=== PATIENT | male | born 1960 | race African-American/Black ===

== ENCOUNTER 2017-10-26 08:45 | Inpatient (IN) ==
[2017-10-28 13:16] VITALS: BP 150/91
== END 2017-10-28 15:02 | disposition home or self-care (01) | DRG 392 ==
LOC: N.ED 08:45 → N.EDINP 13:07 → N.5E 14:42
PROVIDERS: ADMIT Internal Medicine; ATTEND Internal Medicine

== ENCOUNTER 2017-12-22 08:05 | Observation (INO) ==
[2017-12-22] MEDS ORDERED: DIPH/TET/ACEL PERT BOOSTER VACCINE 0.5 ML VIAL IM ONE (08:24)
[2017-12-22 09:20] LABS: Basophils # 0.1 10*3/uL (0.0-0.2); Basophils % 0.7 % (0.0-0.8); Eosinophils # 0.1 10*3/uL (0.0-0.87); Eosinophils % 1.2 % (0.00-10.9); Hematocrit 41.8 VOL% (42.0-52.0); Immature Granulocytes % 0.7 %; Immature Granulocytes Absolute 0.05 #; Lymphocytes # 1.2 10*3/uL (1.4-4.0); Lymphocytes % 17.3 % (21.2-54.2); Mean Corpuscular HGB Conc 33.5 GM/DL (32-36); Mean Corpuscular Hemoglobin 31 PG (27-34); Mean Corpuscular Volume 92.5 FL (87-102); Mean Platelet Volume 11.3 FL (9.6-12.0); Monocytes # 0.7 10*3/uL (0.11-0.8); Monocytes % 10.1 % (1.7-12.7); Neutrophils # 4.8 10*3/uL (1.4-7.4); Platelet Count 259 T/CUMM (130-400); Red Blood Count 4.52 MC/CUMM (3.8-5.5); Red Cell Distribution Width 13.4 % (9.3-17.3); White Blood Count 6.8 T/CUMM (4-12)
[2017-12-22 09:35] LABS: PT Patient Result 10.7 SECS
[2017-12-22 09:53] LABS: Alanine Aminotransferase 18 U/L (16-61); Albumin 3.3 G/DL (3.4-5.0); Alkaline Phosphatase 91 U/L (45-117); Aspartate Amino Transferase 16 U/L (0-37); Blood Urea Nitrogen 8 MG/DL (7-18); Calcium 8.8 MG/DL (8.5-10.1); Glucose 103 MG/DL (74-106); Potassium 3.9 MMOL/L (3.5-5.1); Sodium 143 MMOL/L (136-145); Total Protein 7.3 G/DL (6.4-8.3)
[2017-12-22 10:11] LABS: Apearance,Urine CLEAR (Clear); Bilirubin,Urine Negative (Negative); Blood, Urine Negative (Negative); Glucose,Urine (UA) Negative (Negative); Ketones,Urine Negative (Negative); Mucus,Urine Occasional /LPF (Occasional); Nitrite,Urine Negative (Negative); Protein,Urine Negative; Urine Color Yellow (Yellow); Urine Urobilinogen < 2.0 EU/DL (0.2-1.0); WBC,Urine <1 /HPF (0-6)
[2017-12-22 10:21] LABS: Barbiturates Screen,Urine Negative (Negative); Benzodiazepines Screen,Urine Negative (Negative); Cannabinoid Screen,Urine Positive (Negative); Opiate Screen,Urine Negative (Negative); Phencyclidine Screen,Urine Negative (Negative)
[2017-12-22] MEDS ORDERED: DOCUSATE SODIUM 100 MG CAPSULE PO PRN (11:58)
[2017-12-22] MEDS ORDERED: diphenhydrAMINE CAP 25 MG CAPSULE PO PRN (11:58)
[2017-12-22] MEDS ORDERED: ACETAMINOPHEN 325 MG TABLET PO PRN (11:58)
[2017-12-22] MEDS ORDERED: NICOTINE 21 MG/24 HR PATCH TRANSDERM PRN (11:58)
[2017-12-22] MEDS ORDERED: ONDANSETRON 4 MG/2 ML VIAL IV PRN (11:58)
[2017-12-22] MEDS ORDERED: SODIUM CHLORIDE 0.9% 1,000 ML IV SCH (12:00)
[2017-12-22] MEDS: ENOXAPARIN 40 MG/0.4 ML SYRINGE SUBCUT SCH (12:30)
[2017-12-22] MEDS: PANTOPRAZOLE 40 MG TABLET PO SCH (12:30)
[2017-12-22] MEDS: MULTIVITAMIN (CENTRUM) TABLET PO SCH (16:39)
[2017-12-22] MEDS: THIAMINE 100 MG TABLET PO SCH (16:39)
[2017-12-22] MEDS: amLODIPine 5 MG TABLET PO SCH (16:42)
[2017-12-23 05:33] LABS: Basophils % 0.6 % (0.0-0.8); Eosinophils # 0.2 10*3/uL (0.0-0.87); Eosinophils % 2.4 % (0.00-10.9); Hemoglobin 14.4 GM/DL (14.0-18.0); Immature Granulocytes % 0.3 %; Immature Granulocytes Absolute 0.02 #; Lymphocytes # 1.4 10*3/uL (1.4-4.0); Lymphocytes % 22.1 % (21.2-54.2); Mean Corpuscular HGB Conc 33.5 GM/DL (32-36); Mean Corpuscular Hemoglobin 31 PG (27-34); Mean Corpuscular Volume 91.3 FL (87-102); Mean Platelet Volume 10.9 FL (9.6-12.0); Monocytes # 0.6 10*3/uL (0.11-0.8); Monocytes % 9.1 % (1.7-12.7); Neutrophils # 4.2 10*3/uL (1.4-7.4); Neutrophils % 65.5 % (38.7-73.9); Platelet Count 247 T/CUMM (130-400); Red Blood Count 4.71 MC/CUMM (3.8-5.5); Red Cell Distribution Width 13.2 % (9.3-17.3); White Blood Count 6.4 T/CUMM (4-12)
[2017-12-23 06:01] LABS: Calcium 8.7 MG/DL (8.5-10.1); Osmolality,Calculated 279.4 MOS/KG (273-304); Potassium 3.6 MMOL/L (3.5-5.1); Risk Ratio 3.34; Thyroid Stimulating Hormone 0.77 uIU/ml (0.358-3.74); VLDL CHOLESTEROL 19.2 MG/DL
[2017-12-23] MEDS: MULTIVITAMIN (CENTRUM) TABLET PO SCH (08:49)
[2017-12-23] MEDS: THIAMINE 100 MG TABLET PO SCH (08:49)
[2017-12-23] MEDS: PANTOPRAZOLE 40 MG TABLET PO SCH (08:49)
[2017-12-23] MEDS: amLODIPine 5 MG TABLET PO SCH (08:49)
[2017-12-23 11:32] VITALS: BP 132/78
[2017-12-23] MEDS: ENOXAPARIN 40 MG/0.4 ML SYRINGE SUBCUT SCH (13:42)
== END 2017-12-23 15:30 | disposition home or self-care (01) ==
LOC: N.ED 08:05 → N.EDINP 08:05 → N.TELEN 18:05
PROVIDERS: ADMIT Internal Medicine; ATTEND Internal Medicine